=== PATIENT | female | born 1945 | race Caucasian/White ===

== ENCOUNTER 2019-11-19 03:12 | Inpatient (IN) | payer MEDICARE, BC ==
[~2019-11-19] VITALS: Ht 157.5 cm; Wt 79.8 kg
--- NOTE | 2019-11-19 03:19 | NUR ---
Paged Sandra Johnson RN from [facility]. Waiting for call back.
[2019-11-19] MEDS ORDERED: OLANZAPINE 5 MG TABLET ONE (03:22)
[2019-11-19] MEDS ORDERED: OLANZAPINE 5 MG TABLET PO ONE (03:30)
[2019-11-19] MEDS ORDERED: CLONAZEPAM PO (03:38)
[2019-11-19] MEDS ORDERED: TRAMADOL PO (03:38)
--- NOTE | 2019-11-19 03:43 | NUR ---
2ND CALL PLACE FOR CONNER FROM PET TEAM. WAITING FOR CALL BACK.
--- NOTE | 2019-11-19 03:53 | NUR ---
Pt is resting comfortably in bed. Respirations even & unlabored. Pending PET team evaluation. Waiting call back from Sandra. Will continue to monitor.
--- NOTE | 2019-11-19 04:21 | NUR ---
PLACED 3RD CALL TO CONNER FROM PET TEAM FOR EVAL. WAITING FOR CALL BACK.
--- NOTE | 2019-11-19 04:59 | NUR ---
Rylie Alvarado from [facility] called back. Pet Team will eval patient when patient is arousable and able to be interview.
--- NOTE | 2019-11-19 07:00 | NUR ---
one to one sitter at bedside.
--- NOTE | 2019-11-19 07:55 | NUR ---
pt ambulated to bath room with steady gait.
--- NOTE | 2019-11-19 08:01 | NUR ---
called fanny avalos for psych eval.
--- NOTE | 2019-11-19 08:30 | NUR ---
[facility] eduardo provided for pt.
--- NOTE | 2019-11-19 09:40 | NUR ---
pt placed on 5150 hold for gravely disabled by fanny avalos.
--- NOTE | 2019-11-19 10:10 | NUR ---
pt transfered to mhu in stable condition.
[2019-11-19 10:30] VITALS: BP 113/59
[2019-11-19] MEDS ORDERED: MAG HYDROX/AL HYDROX/SIMETH 30 ML LIQUID UDC PO PRN (10:45)
[2019-11-19] MEDS ORDERED: BLOOD SUGAR DIAGNOSTIC 1 EACH STRIP VI ONE (10:45)
--- NOTE | 2019-11-19 13:13 | NUR ---
TEXTED DR. BIRD FOR MRI APPROVAL.
--- NOTE | 2019-11-19 13:44 | NUR ---
PATIENT ON HOLD , SPOKE WITH NURSE HOOKS.
[2019-11-19] MEDS: DIVALPROEX ER 250 MG TAB.SR.24H PO SCH ×2 (13:48→21:00)
[2019-11-19] MEDS: CLONAZEPAM 0.5 MG TABLET PO SCH ×3 (13:49→21:00)
[2019-11-19] MEDS: QUETIAPINE FUMARATE 25 MG TABLET PO SCH ×3 (13:49→21:00)
--- NOTE | 2019-11-19 13:52 | NUR ---
MRI DEFERRED UNTIL FURTHER NOTICE PER PATIENTS NURSE.
[2019-11-19 15:01] VITALS: BP 110/72
--- NOTE | 2019-11-19 18:16 | NUR ---
RECEIVED PATIENT FROM ER AND ADMITTED TO MHU WITH HOLD 72HR 11/22/19 AT 0940. NO SOB AND NO C/O PAIN, BELONGING ACCOUNTED FOR AND SIGNED. NOTIFIED . GAVE ADVISEMENT TO PATIENT , ORIENTED TO THE FACILITY. NO S/S OF COVID. WILL CONTINUE TO MONITOR
[2019-11-19 20:42] VITALS: BP 122/76
--- NOTE | 2019-11-19 22:00 | NUR ---
received to care, lying in bed, asleep, but easy to awaken. remains confused and disoriented. refused all medications. as of 2199, she remains asleep, and calm. no distress noted. will continue to monitor closely.
--- NOTE | 2019-11-20 06:00 | NUR ---
slept 8 hours, total. assisted with shower. currently in her room. no distress noted.
[2019-11-20 07:51] LABS: ALANINE AMINOTRANSFERASE 23 U/L (14-59); ALKALINE PHOSPHATASE 86 U/L (50-136); ASPARTATE AMINOTRANSFERASE 23 U/L (15-37); BILIRUBIN,TOTAL 0.6 mg/dL (0.2-1.0); CARBON DIOXIDE 30 mmol/L (21-32); CHLORIDE 103 mmol/L (98-107); CREATININE 1.1 mg/dL (0.6-1.3); GLUCOSE 103 mg/dL (74-106); TOTAL PROTEIN, SERUM 6.7 g/dL (6.4-8.2); UREA NITROGEN, BLOOD 15 mg/dL (7-18)
[2019-11-20 07:52] LABS: POTASSIUM 2.6 mmol/L (3.5-5.1)
[2019-11-20 07:58] VITALS: BP 128/54
[2019-11-20] MEDS: DULOXETINE 30 MG CAPSULE.DR PO SCH (09:00)
[2019-11-20] MEDS: DIVALPROEX ER 250 MG TAB.SR.24H PO SCH ×2 (09:01→20:28)
[2019-11-20] MEDS: CLONAZEPAM 0.5 MG TABLET PO SCH ×3 (09:01→16:44)
[2019-11-20] MEDS: QUETIAPINE FUMARATE 25 MG TABLET PO SCH ×3 (09:01→20:28)
--- NOTE | 2019-11-20 10:43 | NUR ---
LAURO Initial Discharge Note: Patient currently resides at home [address] [place] [address] with her Karthik Song ([phone]). Patient son-in-law, Duane Olivares ([phone]) is very involved in the patient care. LAURO will continue to work with patient, family, and MD to ensure a safe and proper discharge plan.
[2019-11-20] MEDS ORDERED: POTASSIUM CHLORIDE 10 MEQ TAB.PRT.SR PO ONE ×2 (12:15→17:00)
--- NOTE | 2019-11-20 12:19 | NUR ---
called and spoke with CONTAMINATED LAND CONSULTANT Radhames for the potassium level of 2.6, orders made and carried out , patient asymptomatic in no distress at this time, seen ambulating in the hallway, assisted with ADL, denies any discomfort
--- NOTE | 2019-11-20 12:51 | NUR ---
Social Work Firearms Report ([employer]): Talent Development Analyst completed and submitted a [employer] firearms report for 5150 grave disability certification. A copy of report has been placed in patient chart.
--- NOTE | 2019-11-20 13:15 | NUR ---
Patient potassium 2.6 relayed to ARLIN Negron. ordered Potassium 40meq tablet one time then another Potassium 20meq in the afternoon. Repeat laboratory potassium tomorrow. Patient in stable condition. will continue monitor
[2019-11-20 16:06] VITALS: BP 140/77
[2019-11-20 19:51] VITALS: BP 121/71
[2019-11-20] MEDS: ATORVASTATIN 20 MG TABLET PO SCH (20:28)
--- NOTE | 2019-11-20 22:00 | NUR ---
received to care, confused and isolative, but pleasant upon approach. compliant with medications, and staff direction. as of 2199, she appears to be asleep. no distress noted. will continue to monitor closely.
[2019-11-21 05:59] LABS: POTASSIUM 3.3 mmol/L (3.5-5.1)
--- NOTE | 2019-11-21 06:00 | NUR ---
slept 8 hours, total. currently awake, and in in her room. no distress noted.
[2019-11-21 07:30] VITALS: BP 133/77
[2019-11-21] MEDS ORDERED: BLOOD SUGAR DIAGNOSTIC 1 EACH STRIP VI ONE (09:00)
[2019-11-21] MEDS ORDERED: POTASSIUM CHLORIDE 20 MEQ TAB.PRT.SR PO ONE (09:00)
[2019-11-21] MEDS: CLONAZEPAM 0.5 MG TABLET PO SCH ×3 (09:16→17:19)
[2019-11-21] MEDS: DIVALPROEX ER 250 MG TAB.SR.24H PO SCH ×2 (09:16→20:35)
[2019-11-21] MEDS: DULOXETINE 30 MG CAPSULE.DR PO SCH (09:16)
[2019-11-21] MEDS: QUETIAPINE FUMARATE 25 MG TABLET PO SCH ×3 (09:18→20:35)
[2019-11-21 16:00] VITALS: BP 118/63
[2019-11-21] MEDS: ATORVASTATIN 20 MG TABLET PO SCH (20:35)
[2019-11-21 20:42] VITALS: BP 104/52
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
[2019-11-22] MEDS: HYDROXYZINE PAMOATE 25 MG CAPSULE PO PRN ×3 (00:37→23:26)
[2019-11-22 07:30] VITALS: BP 154/71
[2019-11-22] MEDS: DULOXETINE 30 MG CAPSULE.DR PO SCH (09:30)
[2019-11-22] MEDS: QUETIAPINE FUMARATE 25 MG TABLET PO SCH (09:30)
[2019-11-22] MEDS: CLONAZEPAM 0.5 MG TABLET PO SCH ×3 (09:30→17:43)
[2019-11-22] MEDS: DIVALPROEX ER 250 MG TAB.SR.24H PO SCH ×2 (09:30→20:09)
[2019-11-22] MEDS: DOCUSATE SODIUM 100 MG CAPSULE PO SCH (09:30)
[2019-11-22] MEDS: HYDROCHLOROTHIAZIDE 25 MG TABLET PO SCH (09:31)
[2019-11-22 09:51] VITALS: BP 154/71
[2019-11-22] MEDS: OLANZAPINE ZYDIS 5 MG TAB.RAPDIS PO SCH ×2 (11:22→17:43)
--- NOTE | 2019-11-22 13:16 | NUR ---
Social Work Individual Therapy: grain farmworker met with patient for brief counseling to address patients delusional thought content. Patient presents confused and disoriented. This brief writer assessed to see if patient is experiencing auditory/visual hallucinations. Patient expressed that the people are trying to "kill her". Patient has been uncooperative with this brief writer and is unable to have meaningful conversation. This brief writer assessed for patient's safety and reassured that she is safe. This brief writer encouraged if she feels in danger to contact either this brief writer or the nursing staff. This brief writer comforted patient.
[2019-11-22] MEDS ORDERED: OLANZAPINE 10 MG VIAL IM ONE (13:30)
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
[2019-11-22 15:12] VITALS: BP 111/60
[2019-11-22] MEDS: ATORVASTATIN 20 MG TABLET PO SCH (20:09)
[2019-11-22 20:15] VITALS: BP 118/58
[2019-11-22] MEDS ORDERED: QUETIAPINE FUMARATE 100 MG TABLET PO SCH (21:00)
[2019-11-22] MEDS ORDERED: QUETIAPINE FUMARATE 25 MG TABLET PO SCH (21:00)
[2019-11-22] MEDS: TEMAZEPAM 15 MG CAPSULE PO PRN (21:22)
--- NOTE | 2019-11-22 21:42 | NUR ---
GPS: Pt.is slightly agitated and anxious. Wandering in and out of other pt's rooms looking for her . Re-directed frequently. Confused,disoriented and easily irritable when being re-directed. Poor insight to present situation. Restoril 15 mg PO was just given few minutes ago. Fall precautions observed. Will continue to monitor for further escalation of behavior.
--- NOTE | 2019-11-22 23:28 | NUR ---
GPS: Still anxious,demanding,paranoid and intrusive. Loud at times and continues to look for her . Re-directed and re-assured constantly by staff. Sleeping pill administered earlier was ineffective. Vistaril 25mg PO taken after a lot of persuasion from staff. Will continue to monitor.
[2019-11-23] MEDS: HYDROXYZINE PAMOATE 25 MG CAPSULE PO PRN (06:10)
--- NOTE | 2019-11-23 06:17 | NUR ---
GPS: Pt.did not sleep at all last night. Anxious,restless on and off,confused,disorganized and constantly talking to self. Constant re-direction provided. Gets easily agitated when care was being rendered. Poor insight to present situation. Vistaril 25mg administered and taken after a lot of persuasion from staff. Kept near nurses station for safety. Gait is unsteady at this time. Will continue to monitor.
[2019-11-23 07:30] VITALS: BP 144/74
--- NOTE | 2019-11-23 08:30 | NUR ---
Social Work Discharge Note: [facility] [place] [address]; ([phone]). Patients Bruno ([phone]) will leaf size picker patient at 1PM. Patients Bruno ([phone]) is aware and agreeable with discharge plan. Patient is aware and agreeable with discharge plans. Upon discharge, patient appear to be calm, cooperative and happy to be going home. Patient denies suicidal and homicidal ideation. Patient will follow up with (hydraulic press [place]) [place] [address], [place] [address]; ([phone]) on December 05 at 10:45AM and will follow up with psychiatrist (intake evaluation) at [facility], [address]; ([phone]) on January 16 at 2:20PM and will discuss smoking cessation and address substance abuse dependency. Patient will resume home health services from [facility] ([phone]) on 09/25/19. Patient was provided with mental health resources: [facility] ;([phone]), [facility]; ([phone]), [facility]; ([phone]), National Suicide Prevention Lifeline; ( ). Patient was provided with substance abuse referrals [place] [facility] [place] ) and was also referred to [facility] ([phone]). Patient presents with euthymic mood and congruent affect.
[2019-11-23] MEDS: DIVALPROEX ER 250 MG TAB.SR.24H PO SCH ×2 (09:02→20:12)
[2019-11-23] MEDS: OLANZAPINE ZYDIS 5 MG TAB.RAPDIS PO SCH ×2 (09:02→18:32)
[2019-11-23] MEDS: DOCUSATE SODIUM 100 MG CAPSULE PO SCH (09:02)
[2019-11-23] MEDS: CLONAZEPAM 0.5 MG TABLET PO SCH ×3 (09:02→18:32)
[2019-11-23] MEDS: HYDROCHLOROTHIAZIDE 25 MG TABLET PO SCH (09:06)
--- NOTE | 2019-11-23 11:56 | NUR ---
Social Work Individual Therapy: organic lab worker met with patient for brief counseling to address patients delusional thought content. Patient presents confused and disoriented. This global technical writer assessed to see if patient is experiencing auditory/visual hallucinations. Patient shared that "she is cleaning her room". Patient is unable to have meaningful conversation with this global technical writer.
[2019-11-23 15:56] VITALS: BP 138/72
[2019-11-23 20:00] VITALS: BP 112/69
[2019-11-23] MEDS: QUETIAPINE FUMARATE 100 MG TABLET PO SCH (20:12)
[2019-11-23] MEDS: ATORVASTATIN 20 MG TABLET PO SCH (20:12)
[2019-11-23] MEDS: TEMAZEPAM 15 MG CAPSULE PO PRN (23:04)
[2019-11-24] MEDS: HYDROXYZINE PAMOATE 25 MG CAPSULE PO PRN (04:25)
--- NOTE | 2019-11-24 06:28 | NUR ---
GPS: Pt.slept 5.45 last night. Pt.was less restless and more re-directable. Continues to get easily irritable/agitated when being told what to do. Remains confused,disoriented and non-sensical. Fall precautions observed. Assisted to the bathroom prn due to unsteady gait. Will continue to monitor.
[2019-11-24 07:49] VITALS: BP 103/69
[2019-11-24] MEDS: OLANZAPINE ZYDIS 5 MG TAB.RAPDIS PO SCH ×2 (08:26→17:07)
[2019-11-24] MEDS: DIVALPROEX ER 250 MG TAB.SR.24H PO SCH ×2 (08:26→19:57)
[2019-11-24] MEDS: HYDROCHLOROTHIAZIDE 25 MG TABLET PO SCH (08:26)
[2019-11-24] MEDS: CLONAZEPAM 0.5 MG TABLET PO SCH ×2 (08:26→19:58)
[2019-11-24] MEDS: DOCUSATE SODIUM 100 MG CAPSULE PO SCH (08:26)
[2019-11-24 08:39] LABS: BASOPHILS # (AUTO) 0.1 K/uL (0.0-8.0); BASOPHILS % (AUTO) 0.6 % (0.0-2.0); EOSINOPHILS # (AUTO) 0.1 K/uL (0.0-0.7); EOSINOPHILS % (AUTO) 0.8 % (0.0-7.0); HEMOGLOBIN 12.6 g/dL (10.9-14.3); LYMPHOCYTES # (AUTO) 2.3 K/uL (20.0-40.0); LYMPHOCYTES % (AUTO) 25.9 % (20.5-51.5); MEAN CORPUSCULAR HEMOGLOBIN 28.4 uug (24.7-32.8); MEAN CORPUSCULAR HGB CONC 33 g/dL (32.3-35.6); MEAN CORPUSCULAR VOLUME 85.3 fL (75.5-95.3); MONOCYTES # (AUTO) 0.9 K/uL (2.0-10.0); MONOCYTES % (AUTO) 10.4 % (0.0-11.0); NEUTROPHILS # (AUTO) 5.6 K/uL (1.8-8.9); NEUTROPHILS % (AUTO) 62.3 % (38.5-71.5); PLATELET COUNT (AUTO) 298 K/uL (179-408); RED BLOOD CELL COUNT(AUTO) 4.45 MIL/uL (3.63-4.92)
[2019-11-24 08:50] LABS: CREATININE 1.2 mg/dL (0.6-1.3); POTASSIUM 2.9 mmol/L (3.5-5.1)
--- NOTE | 2019-11-24 11:23 | NUR ---
Received patient this AM, up in trish chair . Awake but confused to time and place. Unsure how she got here. Reoriented patient to the environment. Patient has been calm and less anxious. Medication compliant this am. Assisted patient up to the bathroom and ambulated in the chapa. Gait still unsteady, stand by assist needed. Monitoring for safety and any behavior escalation. Continuing to provide redirection and reorientation when needed. Was able to have some meaningful conversation this morning.
[2019-11-24] MEDS ORDERED: POTASSIUM CHLORIDE 20 MEQ TAB.PRT.SR PO ONE ×2 (14:30→16:15)
[2019-11-24 16:00] VITALS: BP 118/64
[2019-11-24] MEDS: ATORVASTATIN 20 MG TABLET PO SCH (19:57)
[2019-11-24] MEDS: QUETIAPINE FUMARATE 100 MG TABLET PO SCH (19:58)
[2019-11-24 20:32] VITALS: BP 119/69
[2019-11-24] MEDS: TEMAZEPAM 15 MG CAPSULE PO PRN (22:14)
[2019-11-25] MEDS: HYDROXYZINE PAMOATE 25 MG CAPSULE PO PRN ×2 (03:07→13:50)
--- NOTE | 2019-11-25 04:13 | NUR ---
A/O X1-2,ANXIOUS,RESTLESS,EASILY IRRITABLE AND ANGRY WHEN REDIRECTED .PRN MEDS WERE GIVEN THIS SHIFT FOR SLEEP WITH NO EFF,THEN FOR ANXIETY WITH SL.EFF..IN NO ACUTE DISTRESS NOTED.WILL CONTINUE TO MONITOR.
[2019-11-25 07:30] VITALS: BP 137/65
[2019-11-25] MEDS: DIVALPROEX ER 250 MG TAB.SR.24H PO SCH ×2 (07:49→20:17)
[2019-11-25] MEDS: DOCUSATE SODIUM 100 MG CAPSULE PO SCH (07:49)
[2019-11-25] MEDS: CLONAZEPAM 0.5 MG TABLET PO SCH (07:50)
[2019-11-25] MEDS: OLANZAPINE ZYDIS 5 MG TAB.RAPDIS PO SCH ×2 (07:50→17:35)
[2019-11-25 08:03] LABS: BASOPHILS % (AUTO) 0.5 % (0.0-2.0); EOSINOPHILS % (AUTO) 0.3 % (0.0-7.0); HEMATOCRIT 38.3 % (31.2-41.9); HEMOGLOBIN 12.6 g/dL (10.9-14.3); LYMPHOCYTES # (AUTO) 2.3 K/uL (20.0-40.0); LYMPHOCYTES % (AUTO) 22.1 % (20.5-51.5); MEAN CORPUSCULAR HGB CONC 33 g/dL (32.3-35.6); MEAN CORPUSCULAR VOLUME 84.9 fL (75.5-95.3); MONOCYTES % (AUTO) 10.1 % (0.0-11.0); NEUTROPHILS # (AUTO) 6.9 K/uL (1.8-8.9); PLATELET COUNT (AUTO) 300 K/uL (179-408); RED BLOOD CELL COUNT(AUTO) 4.51 MIL/uL (3.63-4.92); WHITE BLOOD COUNT (AUTO) 10.2 K/uL (3.8-11.8)
[2019-11-25 08:09] LABS: BILIRUBIN,TOTAL 0.5 mg/dL (0.2-1.0); CREATININE 1.2 mg/dL (0.6-1.3); MAGNESIUM 2.3 mg/dL (1.8-2.4); PHOSPHOROUS 3.4 mg/dL (2.5-4.9); POTASSIUM 3.1 mmol/L (3.5-5.1); TOTAL PROTEIN, SERUM 7.2 g/dL (6.4-8.2)
--- NOTE | 2019-11-25 08:48 | NUR ---
Received patient this am up in chair. No sleep noted. Very suspicious , anxious and irritable. Confused and is having visual hallucinations. Medication compliant but anxious and angry at times. Continuing to Monitor for safety, And assist patient when ambulating d/t unsteady gait. Some behavior escalation noted. Redirection and reality based conversations attempted. aware of behavior this morning.
[2019-11-25] MEDS ORDERED: CLONAZEPAM 0.5 MG TABLET PO SCH (09:45)
[2019-11-25 16:00] VITALS: BP 103/61
[2019-11-25] MEDS ORDERED: POTASSIUM CHLORIDE 20 MEQ TAB.PRT.SR PO ONE (16:00)
[2019-11-25] MEDS: CLONAZEPAM 1 MG TABLET PO SCH (20:16)
[2019-11-25] MEDS: QUETIAPINE FUMARATE 200 MG TABLET PO SCH (20:17)
[2019-11-25] MEDS: ATORVASTATIN 20 MG TABLET PO SCH (20:17)
[2019-11-25 20:24] VITALS: BP 137/74
[2019-11-25] MEDS ORDERED: QUETIAPINE FUMARATE 100 MG TABLET PO SCH (21:00)
--- NOTE | 2019-11-26 06:49 | NUR ---
GPS: Pt.slept7 hrs.last night. Remains confused,disoriented and non-sensical. Less agitated when being re-directed. Fall precautions observed due to unsteady gait. Will continue to re-direct prn.
[2019-11-26 07:30] VITALS: BP 114/63
[2019-11-26 07:58] LABS: CREATININE 0.8 mg/dL (0.6-1.3)
[2019-11-26] MEDS: POTASSIUM CHLORIDE 20 MEQ TAB.PRT.SR PO SCH (08:11)
[2019-11-26] MEDS: DOCUSATE SODIUM 100 MG CAPSULE PO SCH (08:11)
[2019-11-26] MEDS: OLANZAPINE ZYDIS 5 MG TAB.RAPDIS PO SCH ×2 (08:11→17:00)
[2019-11-26] MEDS: DIVALPROEX ER 250 MG TAB.SR.24H PO SCH ×2 (08:18→20:05)
[2019-11-26] MEDS: ACETAMINOPHEN 325 MG TABLET PO PRN (10:31)
--- NOTE | 2019-11-26 11:35 | NUR ---
GPS: Patient seen and examined by MD Arreaga with decrease dose of Zyprexa 5mg to 2.5mg BID. Patient is unsteady when ambulates. Continue fall risk precaution monitoring. Patient was confused during rounds, seen in the wrong side of the bed and room. But able to remember when she suppose to stay. will continue monitor
[2019-11-26] MEDS: HYDROXYZINE PAMOATE 25 MG CAPSULE PO PRN (13:55)
[2019-11-26 15:00] VITALS: BP 116/69
[2019-11-26] MEDS: CLONAZEPAM 1 MG TABLET PO SCH (20:03)
[2019-11-26] MEDS: ATORVASTATIN 20 MG TABLET PO SCH (20:03)
[2019-11-26] MEDS: QUETIAPINE FUMARATE 200 MG TABLET PO SCH (20:03)
[2019-11-26 20:26] VITALS: BP 123/67
[2019-11-27] MEDS: HYDROXYZINE PAMOATE 25 MG CAPSULE PO PRN ×2 (00:15→01:57)
[2019-11-27 04:32] LABS: *BLOOD, URINE NEGATIVE (NEGATIVE); *COLOR,URINE YELLOW (YELLOW); *KETONES,URINE 1+ (NEGATIVE); *UROBILINOGEN,URINE 0.2 E.U./dl (NORMAL); LEUKOCYTE ESTERASE ,URINE 2+ (NEGATIVE); NITRITE, URINE NEGATIVE (NEGATIVE); UGLUCOSE NEGATIVE (NEGATIVE)
[2019-11-27 04:36] LABS: *BILIRUBIN,URIN 2+ (NEGATIVE); *CLARITY,URINE SLIGHTLY CLOUDY (CLEAR)
[2019-11-27 04:43] LABS: BACTERIA,URINE MANY /HPF (NONE SEEN); SQUAMOUS EPITHELIAL CELL,UR MANY /HPF (NONE SEEN); WBC,URINE 20-50 /HPF (0-3)
[2019-11-27 04:50] LABS: *CREATININE,URINE 146.6 mg/dL (30-125); *URINE TOTAL PROTEIN RANDOM 23.3 mg/dL (<150/24HR)
--- NOTE | 2019-11-27 05:52 | NUR ---
GPS: Pt.was awake the whole night. Restless on and off and was talking to self. Remains confused,disorganized and non-sensical. Potential for falls due to poor safety awareness. Kept near nurses station for safety. Frequent re-direction provided. Easily irritable at times when being re-directed. Showered earlier and was a little uncooperative.Will continue to monitor.
[2019-11-27 07:30] VITALS: BP 123/73
--- NOTE | 2019-11-27 07:40 | NUR ---
Received patient sitting uon an trish-chair. pt. is A/O x 1, in no acute distress. Pt. is able o express slef at times and also noted taking and mumbling to self.
[2019-11-27] MEDS: POTASSIUM CHLORIDE 20 MEQ TAB.PRT.SR PO SCH (08:43)
[2019-11-27] MEDS: DOCUSATE SODIUM 100 MG CAPSULE PO SCH (08:43)
[2019-11-27] MEDS: DIVALPROEX ER 250 MG TAB.SR.24H PO SCH ×2 (08:43→20:56)
[2019-11-27] MEDS: OLANZAPINE ZYDIS 5 MG TAB.RAPDIS PO SCH (08:43)
--- NOTE | 2019-11-27 09:03 | NUR ---
MRI WAS APPROVED, PATIENT IS SCHEDULE FOR 12 O'CLOCK TODAY SPOKE TO NURSE WHITE.
[2019-11-27] MEDS ORDERED: LORAZEPAM 1 MG TABLET PO ONE (10:45)
[2019-11-27] MEDS: CEphaleXIN 500 MG CAPSULE PO SCH ×2 (11:11→20:56)
[2019-11-27] MEDS: risperiDONE 0.5 MG TABLET PO SCH ×2 (11:11→16:08)
--- NOTE | 2019-11-27 11:35 | NUR ---
Patient with an order for MRI as ordered by . Informed family. Patient started on peripheral IV line with a 22guage on Left wrist, intact and patent. All paper works and consents signed by Dr. Olivares. Patient transported via gurney assisted by 2 medics and 1 diploma dental assistant at 11:30AM.
--- NOTE | 2019-11-27 13:13 | NUR ---
Social Work Individual Therapy: particleboard factory worker met with patient for brief counseling to address patients delusional thought content. Patient presents confused, disorganized, and disoriented. Patient believes that she was home last night and is restless. Patient is unable to have meaningful conversation with this feature writer.
[2019-11-27] MEDS ORDERED: GADOTERIDOL 279.3 MG/ML, 15 ML VIAL IV ONE (14:07)
--- NOTE | 2019-11-27 14:23 | NUR ---
Patient came back from at 1PM. No c/o pain or any dizziness during shift. IV line removed from left wrist. All other needs attended, safety measures in place and will continue with care.
--- NOTE | 2019-11-27 15:53 | NUR ---
MRI results received, informed Dr. Luciano will continue with care.
[2019-11-27 16:33] VITALS: BP 124/75
--- NOTE | 2019-11-27 18:54 | NUR ---
Patient sitting by the nurses's station for most of the shift. In no acute distress. NO screaming or agitation noted. Patient still noted talking to self throughout shift. Monitored closely. Assisted with feeding for dinner time and tolerated. All due medications administered and effective. Patient started on on Keflex for UTI and first dose administered during shift and tolerated well. All other needs attended, safety measures in place and will continue with care.
[2019-11-27 20:15] VITALS: BP 123/69
[2019-11-27] MEDS: CLONAZEPAM 1 MG TABLET PO SCH (20:56)
[2019-11-27] MEDS: ATORVASTATIN 20 MG TABLET PO SCH (20:56)
[2019-11-27] MEDS ORDERED: TRAZODONE 100 MG TABLET PO SCH (21:00)
[2019-11-28 07:30] VITALS: BP 123/59
[2019-11-28] MEDS: DOCUSATE SODIUM 100 MG CAPSULE PO SCH (08:54)
[2019-11-28] MEDS: risperiDONE 0.5 MG TABLET PO SCH ×2 (08:54→17:09)
[2019-11-28] MEDS: CEphaleXIN 500 MG CAPSULE PO SCH ×2 (08:54→20:41)
[2019-11-28] MEDS: DIVALPROEX ER 250 MG TAB.SR.24H PO SCH ×2 (08:54→20:41)
[2019-11-28] MEDS: POTASSIUM CHLORIDE 20 MEQ TAB.PRT.SR PO SCH (08:54)
[2019-11-28] MEDS: MAGNESIUM HYDROXIDE 30 ML LIQUID UDC PO PRN (18:57)
[2019-11-28 20:23] VITALS: BP 130/56
[2019-11-28] MEDS: CLONAZEPAM 1 MG TABLET PO SCH (20:40)
[2019-11-28] MEDS: TRAZODONE 100 MG TABLET PO SCH (20:41)
[2019-11-28] MEDS: ATORVASTATIN 20 MG TABLET PO SCH (20:41)
--- NOTE | 2019-11-28 22:00 | NUR ---
received to care, lying in bed, pleasant upon approach. compliant with medications, and staff direction. as of 0, she appears to be asleep. no distress noted. will continue to monitor closely.
--- NOTE | 2019-11-29 06:00 | NUR ---
slept 6.5 hours, total. continues to sleep. no distress noted.
[2019-11-29 07:30] VITALS: BP 107/62
[2019-11-29] MEDS: risperiDONE 0.5 MG TABLET PO SCH (08:25)
[2019-11-29] MEDS: DIVALPROEX ER 250 MG TAB.SR.24H PO SCH ×2 (08:25→20:02)
[2019-11-29] MEDS: DOCUSATE SODIUM 100 MG CAPSULE PO SCH (08:25)
[2019-11-29] MEDS: CEphaleXIN 500 MG CAPSULE PO SCH (08:25)
[2019-11-29] MEDS: Z GUARD REMEDY PASTE 57 GM TUBE TOP PRN ×2 (10:55→22:00)
--- NOTE | 2019-11-29 13:56 | NUR ---
Received patient this am. Awake, but confused. Oriented to environment and situation. Provided a shower. VS are stable and no acute behavior issues noted. Monitoring for safety and continuing to redirect, educate and orient patient as needed.
[2019-11-29] MEDS: MAGNESIUM HYDROXIDE 30 ML LIQUID UDC PO PRN (14:46)
[2019-11-29 16:00] VITALS: BP 115/46
[2019-11-29] MEDS: risperiDONE 1 MG TABLET PO SCH (16:34)
[2019-11-29] MEDS ORDERED: risperiDONE 0.5 MG TABLET PO SCH (17:00)
[2019-11-29] MEDS: CLONAZEPAM 1 MG TABLET PO SCH (20:02)
[2019-11-29] MEDS: NITROFURANTOIN/NITROFURAN MAC 100 MG CAPSULE PO SCH (20:02)
[2019-11-29] MEDS: ATORVASTATIN 20 MG TABLET PO SCH (20:02)
[2019-11-29] MEDS: TRAZODONE 100 MG TABLET PO SCH (20:02)
[2019-11-29 20:09] VITALS: BP 116/52
--- NOTE | 2019-11-29 22:00 | NUR ---
received to care, sitting in her room, pleasant upon approach. compliant with medications, but remains anxious. is focused on being discharged home. interacts well with room mate. as of 2199, she remains awake. no distress noted.
[2019-11-29] MEDS: HYDROXYZINE PAMOATE 25 MG CAPSULE PO PRN (23:29)
--- NOTE | 2019-11-29 23:29 | NUR ---
remains awake, and anxious, sitting on her bed, in the dark, requesting medication to help her calm down; PRN vistaril was given for anxiety. will continue to monitor closely.
--- NOTE | 2019-11-30 01:00 | NUR ---
appears to be asleep. no distress noted.
--- NOTE | 2019-11-30 06:00 | NUR ---
slept 5.5 hours, total. continues to sleep. no distress noted.
[2019-11-30 07:30] VITALS: BP 129/71
[2019-11-30] MEDS: DIVALPROEX ER 250 MG TAB.SR.24H PO SCH ×2 (08:27→20:22)
[2019-11-30] MEDS: risperiDONE 1 MG TABLET PO SCH ×2 (08:27→16:38)
[2019-11-30] MEDS: NITROFURANTOIN/NITROFURAN MAC 100 MG CAPSULE PO SCH ×2 (08:27→20:22)
[2019-11-30] MEDS: DOCUSATE SODIUM 100 MG CAPSULE PO SCH (08:27)
--- NOTE | 2019-11-30 13:42 | NUR ---
Received patient this am standing at the nurses station without pants on. Assisted patient back to room and reoriented patient to the environment and situation. Patient is confused but can be redirected easily. Am care given, VS are stable, denies pain. Medication compliant. Monitoring for anxiety, pain, s/s of UTI and safety. No acute distress.
--- NOTE | 2019-11-30 15:04 | NUR ---
Social Work Individual Therapy: renal social worker met with patient for brief individual counseling to address patients delusional thought process. Patient presents with calm mood and is able to engage in a more meaningful conversation. Patient shared that she wants to go home and is more aware of her surrounding. Patient speech is low and is able to maintain good eye contact. SW provided supportive counseling and redirection.
[2019-11-30 15:08] VITALS: BP 109/60
[2019-11-30] MEDS: PHENAZOPYRIDINE HCL 100 MG TABLET PO PRN (16:47)
[2019-11-30 20:03] VITALS: BP 132/68
[2019-11-30] MEDS: CLONAZEPAM 1 MG TABLET PO SCH (20:22)
[2019-11-30] MEDS: ATORVASTATIN 20 MG TABLET PO SCH (20:22)
[2019-11-30] MEDS ORDERED: TRAZODONE 100 MG TABLET PO SCH (21:00)
--- NOTE | 2019-11-30 22:00 | NUR ---
received to care, sitting in her room, pleasant upon approach. compliant with medications, but remains anxious. is focused on being discharged home. as of 2199, she remains awake. no distress noted.
[2019-11-30] MEDS: ACETAMINOPHEN 325 MG TABLET PO PRN (23:08)
[2019-11-30] MEDS: HYDROXYZINE PAMOATE 25 MG CAPSULE PO PRN (23:08)
--- NOTE | 2019-11-30 23:08 | NUR ---
pt is now wandering the hallway, carrying her belongings, stating that her is coming to pick her up. reality orientation was provided. PRN vistaril was given for anxiety. currently lying in bed.
--- NOTE | 2019-11-30 23:45 | NUR ---
appears to be asleep. no distress noted.
--- NOTE | 2019-12-01 06:00 | NUR ---
slept 4.5 hours, total. continues to sleep. no distress noted.
[2019-12-01 07:24] LABS: BASOPHILS % (AUTO) 0.6 % (0.0-2.0); EOSINOPHILS # (AUTO) 0.1 K/uL (0.0-0.7); EOSINOPHILS % (AUTO) 0.8 % (0.0-7.0); HEMATOCRIT 34.4 % (31.2-41.9); HEMOGLOBIN 11.5 g/dL (10.9-14.3); LYMPHOCYTES % (AUTO) 26.9 % (20.5-51.5); MEAN CORPUSCULAR HEMOGLOBIN 28.4 uug (24.7-32.8); MEAN CORPUSCULAR HGB CONC 33 g/dL (32.3-35.6); MONOCYTES # (AUTO) 0.9 K/uL (2.0-10.0); MONOCYTES % (AUTO) 11.7 % (0.0-11.0); NEUTROPHILS # (AUTO) 4.4 K/uL (1.8-8.9); PLATELET COUNT (AUTO) 246 K/uL (179-408); RED BLOOD CELL COUNT(AUTO) 4.05 MIL/uL (3.63-4.92); WHITE BLOOD COUNT (AUTO) 7.4 K/uL (3.8-11.8)
[2019-12-01 07:30] VITALS: BP 133/76
[2019-12-01 08:05] LABS: CREATININE 0.8 mg/dL (0.6-1.3); MAGNESIUM 2.5 mg/dL (1.8-2.4); PHOSPHOROUS 4.1 mg/dL (2.5-4.9); POTASSIUM 3.3 mmol/L (3.5-5.1)
[2019-12-01] MEDS: DIVALPROEX ER 250 MG TAB.SR.24H PO SCH ×2 (08:37→11:09)
[2019-12-01] MEDS: DOCUSATE SODIUM 100 MG CAPSULE PO SCH (08:37)
[2019-12-01] MEDS: risperiDONE 1 MG TABLET PO SCH (08:37)
[2019-12-01] MEDS: NITROFURANTOIN/NITROFURAN MAC 100 MG CAPSULE PO SCH ×2 (08:37→20:45)
[2019-12-01] MEDS ORDERED: POTASSIUM CHLORIDE 20 MEQ TAB.PRT.SR PO ONE (12:45)
[2019-12-01 15:42] VITALS: BP 117/77
[2019-12-01] MEDS: risperiDONE 0.5 MG TABLET PO SCH (16:20)
[2019-12-01] MEDS ORDERED: risperiDONE 1 MG TABLET PO SCH (17:00)
[2019-12-01 17:49] LABS: *BILIRUBIN,URIN 2+ (NEGATIVE); *BLOOD, URINE NEGATIVE (NEGATIVE); *COLOR,URINE Brown (YELLOW); *KETONES,URINE 2+ (NEGATIVE); NITRITE, URINE POSITIVE (NEGATIVE); UGLUCOSE TRACE (NEGATIVE)
[2019-12-01 18:16] LABS: *CLARITY,URINE CLOUDY (CLEAR)
[2019-12-01 18:17] LABS: LEUKOCYTE ESTERASE ,URINE TRACE (NEGATIVE)
[2019-12-01 18:19] LABS: BACTERIA,URINE MODERATE /HPF (NONE SEEN); MUCUS,URINE MANY /LPF (0-FEW); SQUAMOUS EPITHELIAL CELL,UR MANY /HPF (NONE SEEN)
--- NOTE | 2019-12-01 18:20 | NUR ---
Patient is AAO x1 , very confused, needs to be reoriented at all times. Patient is in NO acute distress. Vital signs stable, denies any pain. Patient is able to express self and noted talking to self. Due medications administered and tolerate well. Patient on ATB therapy of Macrobid for UTI with no adverse reaction noted. Encouraged to increase fluid intake during shift. Skin kept clean and dry. Needs attended, safety measures in place, monitored closely and will continue with care.
[2019-12-01 20:26] VITALS: BP 106/63
[2019-12-01] MEDS: ATORVASTATIN 20 MG TABLET PO SCH (20:45)
[2019-12-01] MEDS: CLONAZEPAM 1 MG TABLET PO SCH (20:45)
[2019-12-01] MEDS: DIVALPROEX ER 500 MG TAB.SR.24H PO SCH (20:45)
[2019-12-01] MEDS ORDERED: MIRTAZAPINE 15 MG TABLET PO SCH (21:00)
--- NOTE | 2019-12-02 06:11 | NUR ---
Received Pt in hallway sitting in the trish chair. A+Ox1 to herself only, Pt is confused, disoriented, and disorganized. Pt is delusional and hyperverbal, speaks to herself and unseen others, requires frequent reality reorientation and redirection. Pt is restless and anxious and presents with poor sleep. Denies pain, VS stable. Slept 1.45 hours. Shower given this morning.
[2019-12-02 07:30] VITALS: BP 129/72
[2019-12-02] MEDS: risperiDONE 0.5 MG TABLET PO SCH ×2 (08:09→17:05)
[2019-12-02] MEDS: NITROFURANTOIN/NITROFURAN MAC 100 MG CAPSULE PO SCH ×2 (08:09→20:29)
[2019-12-02] MEDS: DOCUSATE SODIUM 100 MG CAPSULE PO SCH (08:09)
[2019-12-02] MEDS: DIVALPROEX ER 250 MG TAB.SR.24H PO SCH (08:09)
[2019-12-02] MEDS: Z GUARD REMEDY PASTE 57 GM TUBE TOP PRN (08:58)
--- NOTE | 2019-12-02 10:15 | NUR ---
Received patient this am in Maria L chair. Restless and totally confused. Unable to hold any meaningful conversation. Attempts made to reorient patient to situation multiple times. Assist given with breakfast. Patient is medication compliant. Ambulates in chapa, gait steady but wonders into other patients room and is lost. Redirection given and frequent rounding done to ensure patients safety. Visual hallucinations noted. Monitoring anxiety and behavior. No acute distress at this time.
[2019-12-02] MEDS: HYDROXYZINE PAMOATE 25 MG CAPSULE PO PRN (15:31)
[2019-12-02 16:10] VITALS: BP 121/71
[2019-12-02] MEDS: DIVALPROEX ER 500 MG TAB.SR.24H PO SCH (20:22)
[2019-12-02] MEDS: CLONAZEPAM 1 MG TABLET PO SCH (20:22)
[2019-12-02] MEDS: MIRTAZAPINE 15 MG TABLET PO SCH (20:28)
[2019-12-02] MEDS: ATORVASTATIN 20 MG TABLET PO SCH (20:29)
--- NOTE | 2019-12-02 23:08 | NUR ---
GPS/ RECEIVED PT UP IN EMIR-CHAIR. ALERT BUT VERY CONFUSE, RESTLESS, AND UNABLE TO COMPREHEND ANYTHING MENTALLY. PT CONSTANTLY TRYING TO GET OUT OF CHAIR OR BUSY AND ENGAGING IN REMOVING HER CLOTHS UNKNOWINGLY. PT UNABLE TO REDIRECT OR REINFORCE REALITY DUE TO OVER STIMULATION. PT ROUTINE MEDICATIONS DIVALPROEX ER 500MG, KLONOPIN 1MG, REMORON 30MG INCREASED FROM 15MG AND MICROBID WAS GIVEN FOR UTI, COOPERATIVE AND OFFER WATER CHARLY. PT WAS TRANSFER TO ROOM AND BRP GIVEN WITH NOTED URINE COLOR YELLOWISH. MEDS EFFECTIVE AND PT IS NOW RESTING ING BED. Q/15 MINS HEAD COUNT WILL CONTINUE.
--- NOTE | 2019-12-03 06:16 | NUR ---
PT WAS MONITORED DURING SHIFT, NO NEW BEHAVIOR AND PT SLEPT UP TO 7.30MINS. AWAKE TO USE BRP. RESPONDING AND BREATHING EVEN.
[2019-12-03 07:30] VITALS: BP 139/52
[2019-12-03] MEDS: NITROFURANTOIN/NITROFURAN MAC 100 MG CAPSULE PO SCH ×2 (08:52→21:20)
[2019-12-03] MEDS: DIVALPROEX ER 250 MG TAB.SR.24H PO SCH (08:52)
[2019-12-03] MEDS: DOCUSATE SODIUM 100 MG CAPSULE PO SCH (08:52)
[2019-12-03] MEDS: risperiDONE 0.5 MG TABLET PO SCH ×3 (10:23→16:45)
[2019-12-03 15:05] VITALS: BP 110/52
[2019-12-03 20:22] VITALS: BP 136/50
[2019-12-03] MEDS: CLONAZEPAM 1 MG TABLET PO SCH (21:20)
[2019-12-03] MEDS: MIRTAZAPINE 15 MG TABLET PO SCH (21:20)
[2019-12-03] MEDS: DIVALPROEX ER 500 MG TAB.SR.24H PO SCH (21:20)
[2019-12-03] MEDS: ATORVASTATIN 20 MG TABLET PO SCH (21:20)
[2019-12-04] MEDS: HYDROXYZINE PAMOATE 25 MG CAPSULE PO PRN (00:05)
[2019-12-04] MEDS: PHENAZOPYRIDINE HCL 100 MG TABLET PO PRN ×2 (00:05→16:19)
--- NOTE | 2019-12-04 00:15 | NUR ---
Received Pt in her room sleeping, arouses easily. A+Ox2 this shift, more alert than prior shifts.Pt is less confused and more organized in thought process. Pt is currently resting in bed, fluids provided, Pt declined HS snack. Compliant with medications, cooperative with staff direction. Denies pain, VS stable.
[2019-12-04 07:30] VITALS: BP 107/56
[2019-12-04] MEDS: risperiDONE 0.5 MG TABLET PO SCH ×3 (08:49→16:19)
[2019-12-04] MEDS: NITROFURANTOIN/NITROFURAN MAC 100 MG CAPSULE PO SCH ×2 (08:49→20:31)
[2019-12-04] MEDS: DOCUSATE SODIUM 100 MG CAPSULE PO SCH (08:49)
[2019-12-04] MEDS: DIVALPROEX ER 250 MG TAB.SR.24H PO SCH (08:49)
--- NOTE | 2019-12-04 09:38 | NUR ---
Received patient this am. Awake, totally confused. Constant redirection and reorientation needed. Patient ambulates in hallway, wonders in and out of other patients room. VS are stable and no c/o pain. Some anxiety noted. Monitoring for safety and anxiety. No acute distress noted at this time.
[2019-12-04 16:00] VITALS: BP 95/56
[2019-12-04] MEDS: ACETAMINOPHEN 325 MG TABLET PO PRN (16:20)
--- NOTE | 2019-12-04 16:20 | NUR ---
Patient with slight elevated temp. Tylenol given. Encourage fluids. Continuing to monitor.
[2019-12-04 20:10] VITALS: BP 142/73
[2019-12-04] MEDS: DIVALPROEX ER 500 MG TAB.SR.24H PO SCH (20:29)
[2019-12-04] MEDS: CLONAZEPAM 1 MG TABLET PO SCH (20:31)
[2019-12-04] MEDS: ATORVASTATIN 20 MG TABLET PO SCH (20:31)
[2019-12-04] MEDS: AMITRIPTYLINE HCL 50 MG TABLET PO SCH (20:53)
--- NOTE | 2019-12-04 21:42 | NUR ---
GPS/PT UP IN BED. ALERT BUT CONFUSE, AND ABLE TO RESPOND BACK WITH QUESTIONED. PT ROUTINE MEDICATIONS DIVALPROEX ER 500MG, KLONOPIN 1MG, REMORON 30MG, AND NEW ORDER AMITRIPTYLINE 100MG, AND MICROBID WAS GIVEN FOR UTI. PT COOPERATIVE WITH MEDS, AND OFFER WATER CHARLY. MEDS EFFECTIVE AND PT IS NOW RESTING ING BED. Q/15 MINS HEAD COUNT WILL CONTINUE, ALSO MONITORING INCREASE BEHAVIOR PER NEW POSITIVE ENTEROCOCCUS FAECALIS. GOOD PERICARE WILL BE PROVIDED.
--- NOTE | 2019-12-05 06:41 | NUR ---
PT SLEPT 5.45MINS DURING SHIFT, PT WAS UP AND FREQUENTLY USING BR. OFFER WATER AND ENCOURAGE TO DRINK TOLERATED.
[2019-12-05 07:30] VITALS: BP 130/83
[2019-12-05] MEDS: DIVALPROEX ER 250 MG TAB.SR.24H PO SCH (08:33)
[2019-12-05] MEDS: risperiDONE 0.5 MG TABLET PO SCH ×3 (08:33→17:08)
[2019-12-05] MEDS: ACETAMINOPHEN 325 MG TABLET PO PRN (08:33)
[2019-12-05] MEDS: PHENAZOPYRIDINE HCL 100 MG TABLET PO PRN (08:33)
[2019-12-05] MEDS: DOCUSATE SODIUM 100 MG CAPSULE PO SCH (08:34)
[2019-12-05] MEDS: Z GUARD REMEDY PASTE 57 GM TUBE TOP PRN (09:31)
--- NOTE | 2019-12-05 10:02 | NUR ---
Received patient in chair, Awake, alert but very confused. VS stable. Assist to bathroom multiple times. Zguard applied. Spoke with edging catcher about s/s of UTI. Plan to obtain another urine sample and possibly restart antibiotics. Patient is medication compliant. Medicated for discomfort, also constant reorientation and redirection provided. Continuing to monitor for safety. Fluids provided and encouraged.
[2019-12-05] MEDS: HYDROXYZINE PAMOATE 25 MG CAPSULE PO PRN ×2 (12:27→19:56)
[2019-12-05 16:04] VITALS: BP 108/63
--- NOTE | 2019-12-05 17:48 | NUR ---
Assisted to the bathroom, UA obtained and sent to the lab. Patient is restless and has a poor appetite. Encouraged fluids and patient tolerated them well, refused food however. Continuing to provide food selections and options. Monitoring for safety, gait unsteady tonight.
[2019-12-05 18:06] LABS: *BILIRUBIN,URIN 2+ (NEGATIVE); *BLOOD, URINE NEGATIVE (NEGATIVE); *CLARITY,URINE SLIGHTLY CLOUDY (CLEAR); *KETONES,URINE 3+ (NEGATIVE); LEUKOCYTE ESTERASE ,URINE 3+ (NEGATIVE); NITRITE, URINE POSITIVE (NEGATIVE); UGLUCOSE TRACE (NEGATIVE)
[2019-12-05 18:20] LABS: *COLOR,URINE BROWN (YELLOW)
[2019-12-05 18:22] LABS: BACTERIA,URINE MANY /HPF (NONE SEEN); MUCUS,URINE MANY /LPF (0-FEW); SQUAMOUS EPITHELIAL CELL,UR MODERATE /HPF (NONE SEEN); WBC,URINE 20-50 /HPF (0-3)
[2019-12-05 20:19] VITALS: BP 128/66
[2019-12-05] MEDS: ATORVASTATIN 20 MG TABLET PO SCH (21:02)
[2019-12-05] MEDS: DIVALPROEX ER 500 MG TAB.SR.24H PO SCH (21:02)
[2019-12-05] MEDS: CLONAZEPAM 1 MG TABLET PO SCH (21:02)
[2019-12-05] MEDS: AMITRIPTYLINE HCL 50 MG TABLET PO SCH (21:02)
--- NOTE | 2019-12-05 22:00 | NUR ---
received to care, up in trish chair for safety, anxious, but pleasant upon approach. COBY rubiotaril, was given for anxiety, at 1955. by 2099, she was much calmer. compliant with medications, and staff direction. as of 2199, she appears to be asleep, in bed. no distress noted. will continue to monitor closely.
--- NOTE | 2019-12-06 06:00 | NUR ---
slept 8.25 hours, total. continues to sleep. no distress noted.
[2019-12-06 07:08] LABS: BASOPHILS % (AUTO) 0.4 % (0.0-2.0); EOSINOPHILS # (AUTO) 0.1 K/uL (0.0-0.7); EOSINOPHILS % (AUTO) 1.2 % (0.0-7.0); LYMPHOCYTES % (AUTO) 21.1 % (20.5-51.5); MEAN CORPUSCULAR HEMOGLOBIN 28.8 uug (24.7-32.8); MEAN CORPUSCULAR HGB CONC 34 g/dL (32.3-35.6); MONOCYTES # (AUTO) 1.2 K/uL (2.0-10.0); MONOCYTES % (AUTO) 12.6 % (0.0-11.0); NEUTROPHILS # (AUTO) 6.3 K/uL (1.8-8.9); NEUTROPHILS % (AUTO) 64.7 % (38.5-71.5); PLATELET COUNT (AUTO) 215 K/uL (179-408); RED BLOOD CELL COUNT(AUTO) 3.81 MIL/uL (3.63-4.92); WHITE BLOOD COUNT (AUTO) 9.7 K/uL (3.8-11.8)
[2019-12-06 07:32] LABS: BILIRUBIN,TOTAL 0.6 mg/dL (0.2-1.0); CREATININE 0.8 mg/dL (0.6-1.3); MAGNESIUM 2.3 mg/dL (1.8-2.4); PHOSPHOROUS 3.9 mg/dL (2.5-4.9); POTASSIUM 2.9 mmol/L (3.5-5.1); TOTAL PROTEIN, SERUM 5.6 g/dL (6.4-8.2)
[2019-12-06 07:46] VITALS: BP 124/60
[2019-12-06] MEDS ORDERED: POTASSIUM CHLORIDE 20 MEQ TAB.PRT.SR PO ONE ×2 (08:00→10:00)
[2019-12-06] MEDS: risperiDONE 0.5 MG TABLET PO SCH ×3 (09:12→17:35)
[2019-12-06] MEDS: DIVALPROEX ER 250 MG TAB.SR.24H PO SCH (09:12)
[2019-12-06] MEDS: NITROFURANTOIN/NITROFURAN MAC 100 MG CAPSULE PO SCH ×2 (09:12→20:06)
[2019-12-06] MEDS: DOCUSATE SODIUM 100 MG CAPSULE PO SCH (09:12)
--- NOTE | 2019-12-06 15:15 | NUR ---
Social Work Individual Therapy: tar worker met with patient for brief individual counseling to address patients delusional thought process. Patient presents with frustrated mood and congruent affect. Patient shared that she is in "a lot of pain" but was unable to explain why. Patient speech is low. Gauger Delivery encouraged patient to join group activities but patient refused. Patient is aware that she is going home tomorrow and is looking forward to it. Gauger Delivery supported patient and ensured that she will be going home with support.
[2019-12-06 16:00] VITALS: BP 138/72
[2019-12-06 20:00] VITALS: BP 121/80
[2019-12-06] MEDS: CLONAZEPAM 1 MG TABLET PO SCH (20:06)
[2019-12-06] MEDS: ATORVASTATIN 20 MG TABLET PO SCH (20:06)
[2019-12-06] MEDS: AMITRIPTYLINE HCL 50 MG TABLET PO SCH (20:06)
[2019-12-06] MEDS: DIVALPROEX ER 500 MG TAB.SR.24H PO SCH (20:06)
[2019-12-06] MEDS: HYDROXYZINE PAMOATE 25 MG CAPSULE PO PRN (21:18)
--- NOTE | 2019-12-06 23:00 | NUR ---
received to care, up in trish chair for safety, anxious, but pleasant upon approach. compliant with medications, and staff direction. PRN vistaril was given for anxiety, at 2117. as of 2299, she remains restless, focused on going home, refuses to go to bed. no distress noted. will continue to monitor closely.
--- NOTE | 2019-12-07 06:00 | NUR ---
slept 6.75 hours, total. continues to sleep. no distress noted.
[2019-12-07 07:16] LABS: BASOPHILS % (AUTO) 0.3 % (0.0-2.0); EOSINOPHILS # (AUTO) 0.1 K/uL (0.0-0.7); EOSINOPHILS % (AUTO) 0.5 % (0.0-7.0); HEMATOCRIT 32.6 % (31.2-41.9); LYMPHOCYTES # (AUTO) 2.2 K/uL (20.0-40.0); LYMPHOCYTES % (AUTO) 23.6 % (20.5-51.5); MEAN CORPUSCULAR HEMOGLOBIN 28.3 uug (24.7-32.8); MEAN CORPUSCULAR HGB CONC 34 g/dL (32.3-35.6); MEAN CORPUSCULAR VOLUME 84.1 fL (75.5-95.3); MONOCYTES # (AUTO) 1.1 K/uL (2.0-10.0); MONOCYTES % (AUTO) 11.9 % (0.0-11.0); NEUTROPHILS % (AUTO) 63.7 % (38.5-71.5); PLATELET COUNT (AUTO) 229 K/uL (179-408); RED BLOOD CELL COUNT(AUTO) 3.88 MIL/uL (3.63-4.92); WHITE BLOOD COUNT (AUTO) 9.5 K/uL (3.8-11.8)
[2019-12-07 07:21] LABS: CREATININE 0.9 mg/dL (0.6-1.3); MAGNESIUM 2.3 mg/dL (1.8-2.4); PHOSPHOROUS 3.4 mg/dL (2.5-4.9); POTASSIUM 3.7 mmol/L (3.5-5.1)
[2019-12-07 07:30] VITALS: BP 122/77
[2019-12-07] MEDS: HYDROXYZINE PAMOATE 25 MG CAPSULE PO PRN (07:41)
[2019-12-07] MEDS: DOCUSATE SODIUM 100 MG CAPSULE PO SCH (08:29)
[2019-12-07] MEDS: NITROFURANTOIN/NITROFURAN MAC 100 MG CAPSULE PO SCH (08:29)
[2019-12-07] MEDS: DIVALPROEX ER 250 MG TAB.SR.24H PO SCH (08:29)
[2019-12-07] MEDS: risperiDONE 0.5 MG TABLET PO SCH (08:29)
--- NOTE | 2019-12-07 08:30 | NUR ---
SW Discharge Note: Patient will be discharged today back home [id number] [place] [address] ([phone]). Patient will be provided transportation by her son-in-law Duane Olivares ([phone]) at 1pm. Patients Mey woods ([phone]) is aware and agreeable with discharge plans. Patient is aware and agreeable with discharge plans. Patient presents with withdrawn mood and flat affect. Patient denies suicidal or homicidal ideation. Patient will be following up with her psychiatrist Dr. Arreaga [address], [place] [address] ([phone]) and has a telephone appointment scheduled on Tuesday December 10, 2019 at 1:30pm. [facility] [address] [place] [address], [address] [place] [address] ([phone]) and patients daughterMey will be calling to make an appointment per family request. Patient is referred for home health services by [facility]. ( ) Shannon wage and salary administrator (cell: [phone]) for medication management, physical therapy, shower assistance, and completing ADLs. Patient and family are provided with caregiving resources including the following: [facility] ([phone]), [facility] ([phone]), [facility] ([phone]). Patient was also provided with outpatient mental health resources to [facility] , and the National Suicide Prevention Lifeline .
--- NOTE | 2019-12-07 09:57 | NUR ---
Patient will be discharge to home around 1pm via private car with son in law. Patient will be following up with her psychiatrist Dr. Arreaga [address] [place], [place] [address] [address], [place] [address] ([phone]) and has a telephone appointment scheduled on Tuesday December 10, 2019 at 1:30pm. Patient is referred to [facility] Dr. Harrison [address] [place] [address], [address] [place] [address] ([phone]) . MD Arreaga (psych) and ARLIN Del Cid (Hospitalist aware).
--- NOTE | 2019-12-07 12:12 | NUR ---
Patient discharge to home via private car around 12pm with son in law. Denies suicidal/homicide ideation, denies visual hallucination. Prescription and TMS was given to son in law, verbalize that he communicate with [employer] Nehemias. Belongings and discharge instructions was given to son in law. MD Arreaga and MD Del Cid aware of the discharge.
== END 2019-12-07 12:00 | disposition home health service (06) | DRG 885 ==
LOC: ER 03:14 → GPS 10:11
PROVIDERS: ADMIT Psychiatry & Neurology Psychiatry; ATTEND Internal Medicine
DX: F31.64 Bipolar disorder, current episode mixed, severe, with psychotic features (principal); N17.0 Acute kidney failure with tubular necrosis; B95.2 Enterococcus as the cause of diseases classified elsewhere; E44.0 Moderate protein-calorie malnutrition; N39.0 Urinary tract infection, site not specified; G93.40 Encephalopathy, unspecified; M19.90 Unspecified osteoarthritis, unspecified site; E78.5 Hyperlipidemia, unspecified; E86.1 Hypovolemia; E87.6 Hypokalemia; I10 Essential (primary) hypertension; F29 Unspecified psychosis not due to a substance or known physiological condition; K59.00 Constipation, unspecified; E66.01 Morbid (severe) obesity due to excess calories; R60.0 Localized edema; Z68.32 Body mass index [BMI] 32.0-32.9, adult; D44.4 Neoplasm of uncertain behavior of craniopharyngeal duct; Z79.899 Other long term (current) drug therapy; T50.2X5A Adverse effect of carbonic-anhydrase inhibitors, benzothiadiazides and other diuretics, initial encounter; Y92.89 Other specified places as the place of occurrence of the external cause
CPT/HCPCS: 36415; 70553; 80164; 83735; 84100; 84133; 84156; 84300; 85025; 87077; 87086; 93005; A4663; A9579; J2358

== ENCOUNTER 2020-05-30 16:03 | Inpatient (IN) | payer MEDICARE, BC ==
[~2020-05-30] VITALS: Ht 162.6 cm; Wt 68.5 kg
[~2020-05-30 16:03] MED LIST: TRAMADOL PO
--- NOTE | 2020-05-30 16:03 | NUR ---
Dr. Olivares at bedside for MSE
--- NOTE | 2020-05-30 16:03 | NUR ---
Patient BIB [id number] via [email or web address]. c/o syncopal episode at home. no visible injuries noted. patient A&O x1. speech is clear and able to make needs known / follow commands. Breathing even and unlabored. no cough or SOB noted. denies any CP / dizziness / [place]
[2020-05-30 16:24] LABS: BASOPHILS % (AUTO) 0.5 % (0.0-2.0); EOSINOPHILS % (AUTO) 0.3 % (0.0-7.0); HEMATOCRIT 32.9 % (31.2-41.9); HEMOGLOBIN 11.3 g/dL (10.9-14.3); LYMPHOCYTES # (AUTO) 2.1 K/uL (20.0-40.0); LYMPHOCYTES % (AUTO) 29.2 % (20.5-51.5); MEAN CORPUSCULAR HEMOGLOBIN 29.1 uug (24.7-32.8); MEAN CORPUSCULAR HGB CONC 34 g/dL (32.3-35.6); MEAN CORPUSCULAR VOLUME 84.6 fL (75.5-95.3); MONOCYTES # (AUTO) 0.9 K/uL (2.0-10.0); MONOCYTES % (AUTO) 12.9 % (0.0-11.0); NEUTROPHILS # (AUTO) 4.2 K/uL (1.8-8.9); NEUTROPHILS % (AUTO) 57.1 % (38.5-71.5); PLATELET COUNT (AUTO) 194 K/uL (179-408); RED BLOOD CELL COUNT(AUTO) 3.88 MIL/uL (3.63-4.92); WHITE BLOOD COUNT (AUTO) 7.3 K/uL (3.8-11.8)
[2020-05-30 16:31] LABS: CREATININE 1.2 mg/dL (0.6-1.3); POTASSIUM 3.2 mmol/L (3.5-5.1)
[2020-05-30 16:37] LABS: BILIRUBIN,DIRECT 0.1 mg/dL (0.0-0.2); BILIRUBIN,TOTAL 0.3 mg/dL (0.2-1.0); TOTAL PROTEIN, SERUM 6.4 g/dL (6.4-8.2)
--- NOTE | 2020-05-30 17:20 | NUR ---
Pt. admitted to Telemetry , under care of Dr. Olivares Belongs List completed
--- NOTE | 2020-05-30 17:20 | NUR ---
Shruthi begum in ED - 05/30/[address] at [address] Olivares at [facility] for MSE
[2020-05-30] MEDS ORDERED: ACETAMINOPHEN 325 MG TABLET PO PRN (17:30)
[2020-05-30] MEDS ORDERED: MAGNESIUM HYDROXIDE 30 ML LIQUID UDC PO PRN (17:30)
[2020-05-30] MEDS ORDERED: ONDANSETRON 4 MG/2 ML VIAL IV PRN (17:30)
[2020-05-30] MEDS ORDERED: Z GUARD REMEDY PASTE 57 GM TUBE TOP PRN (17:30)
--- NOTE | 2020-05-30 18:10 | NUR ---
Report given to Goran ZHANG
--- NOTE | 2020-05-30 18:30 | NUR ---
Admitted patient in RM 314 via wheelchair, confused. Very difficult to redirect and at times uncooperative. Speech is garble and not making sense. On RA with no SOB or distress at this time. On tele NSR. Able to stand and getting out of bed but very unsteady. Kept redirecting to stay in bed. Safety precaution in place. Will continue to monitor
[2020-05-30 18:50] VITALS: BP 103/68
[2020-05-30 18:59] VITALS: BP 103/67
--- NOTE | 2020-05-30 19:10 | NUR ---
Pt in bed, awake. Pt is confused, speech is not making any sense. Difficult to redirect at times. Sitter is on the bedside. V/S stable on room air. No s/s of acute distress or pain at this time. Pt came here d/t syncopal episode. Skin is intact. Safety measures in place. Bed low and locked in position. Call light within reach. Will continue with the plan of care.
[2020-05-31] VITALS: BP 121/64
[2020-05-31 04:40] VITALS: BP 124/66
--- NOTE | 2020-05-31 06:34 | NUR ---
Pt slept intermittently through the night. V/S stable on room air. NSR on tele monitor. Fall precaution maintained. Sitter on the bedside. Safety measures in place. Call light within reach. Will endorse to oncoming nurse accordingly.
--- NOTE | 2020-05-31 07:15 | NUR ---
Received patient in bed, awake, confused. On Room air sat. 98%. No complain of Pain. Covid 19 rapid test was Negative, will be move to Room 306. Kept clean and comfortable. kept the bed in lowest position. Will continue to monitor.
[2020-05-31 08:09] LABS: BASOPHILS % (AUTO) 0.4 % (0.0-2.0); EOSINOPHILS % (AUTO) 0.4 % (0.0-7.0); HEMATOCRIT 31.4 % (31.2-41.9); HEMOGLOBIN 10.9 g/dL (10.9-14.3); LYMPHOCYTES # (AUTO) 2.9 K/uL (20.0-40.0); LYMPHOCYTES % (AUTO) 44.6 % (20.5-51.5); MEAN CORPUSCULAR HEMOGLOBIN 29.3 uug (24.7-32.8); MEAN CORPUSCULAR HGB CONC 35 g/dL (32.3-35.6); MEAN CORPUSCULAR VOLUME 84.6 fL (75.5-95.3); MONOCYTES # (AUTO) 0.9 K/uL (2.0-10.0); MONOCYTES % (AUTO) 14.1 % (0.0-11.0); NEUTROPHILS # (AUTO) 2.6 K/uL (1.8-8.9); NEUTROPHILS % (AUTO) 40.5 % (38.5-71.5); PLATELET COUNT (AUTO) 183 K/uL (179-408); RED BLOOD CELL COUNT(AUTO) 3.71 MIL/uL (3.63-4.92); WHITE BLOOD COUNT (AUTO) 6.5 K/uL (3.8-11.8)
[2020-05-31 08:18] LABS: BILIRUBIN,TOTAL 0.4 mg/dL (0.2-1.0); PHOSPHOROUS 3.4 mg/dL (2.5-4.9); POTASSIUM 3.2 mmol/L (3.5-5.1); TOTAL PROTEIN, SERUM 6.1 g/dL (6.4-8.2)
--- NOTE | 2020-05-31 09:23 | NUR ---
BP lying 134/74 FL 87, sitting 121/68 FL 87
--- NOTE | 2020-05-31 10:44 | NUR ---
collected Urine and sent to lab.
[2020-05-31] MEDS ORDERED: POTASSIUM CHLORIDE 20 MEQ TAB.PRT.SR PO ONE (10:45)
[2020-05-31 11:05] VITALS: BP 119/68
[2020-05-31] MEDS ORDERED: IV NS 1000 ML 1,000 ML IV PRN (11:15)
[2020-05-31 12:48] LABS: *BILIRUBIN,URIN NEGATIVE (NEGATIVE); *CLARITY,URINE CLOUDY (CLEAR); *COLOR,URINE YELLOW (YELLOW); *KETONES,URINE 2+ (NEGATIVE); *UROBILINOGEN,URINE 0.2 E.U./dl (NORMAL); LEUKOCYTE ESTERASE ,URINE 2+ (NEGATIVE); NITRITE, URINE POSITIVE (NEGATIVE); UGLUCOSE NEGATIVE (NEGATIVE)
[2020-05-31 12:49] LABS: *BLOOD, URINE TRACE INTACT (NEGATIVE)
[2020-05-31] MEDS ORDERED: NITROFURANTOIN/NITROFURAN MAC 100 MG CAPSULE PO SCH (13:00)
[2020-05-31] MEDS: CEphaleXIN 500 MG CAPSULE PO SCH ×2 (13:37→21:58)
[2020-05-31 14:05] LABS: BACTERIA,URINE MODERATE /HPF (NONE SEEN); RBC,URINE 0-3 /HPF (0-3); SQUAMOUS EPITHELIAL CELL,UR MODERATE /HPF (NONE SEEN); WBC,URINE TNTC /HPF (0-3)
[2020-05-31 16:18] VITALS: BP 98/66
--- NOTE | 2020-05-31 16:25 | NUR ---
patient started to be agitated trying to get up from bed, Dr. mata made aware with Order of Ativan 1mg IM x 1.
[2020-05-31] MEDS ORDERED: LORAZEPAM 2 MG/1 ML VIAL IM ONE (16:45)
--- NOTE | 2020-05-31 17:29 | NUR ---
Ativan 1mg IM was given and not effective. Patient remains agitated, Dr. mata made aware with new order of Zyprexa 5mg IM x one.
[2020-05-31] MEDS ORDERED: OLANZAPINE 10 MG VIAL IM ONE (17:30)
--- NOTE | 2020-05-31 18:25 | NUR ---
Patient in bed, still awake. On Room Air sat, 96%. No complain of Pain or discomfort noted. Patient noted with agitation, Ativan 1mg IM and Zyprexa 5mg IM given as ordered by Dr. mata. Patient on 1:1 for safety. kept clean and comfortable. Kept the bed in lowest position. Will endorse to Oncoming Nurse.
--- NOTE | 2020-05-31 19:20 | NUR ---
Pt in bed. Confused, speech is garbled and difficult to redirect at times. No s/s of acute distress or pain noted. V/S stable on room air. NSR on tele monitor. PIV on RAC 20 is intact with NS at 80cc. Safety measures in place. Call light within reach. Will continue with the plan of care.
[2020-05-31 20:00] VITALS: BP 107/88
[2020-05-31] MEDS: DIVALPROEX ER 500 MG TAB.SR.24H PO SCH (21:58)
[2020-05-31] MEDS: risperiDONE 0.5 MG TABLET PO SCH (21:58)
[2020-06-01 00:36] VITALS: BP 122/71
[2020-06-01 04:00] VITALS: BP 138/86
[2020-06-01 06:14] LABS: POTASSIUM 3.5 mmol/L (3.5-5.1)
--- NOTE | 2020-06-01 06:48 | NUR ---
Pt stable throughout the shift. Comfort care and needs attended. Safety measures in place. Call light within reach. Will endorse to oncoming nurse
[2020-06-01 08:00] VITALS: BP 116/67
[2020-06-01] MEDS: CEphaleXIN 500 MG CAPSULE PO SCH ×2 (09:03→17:55)
[2020-06-01] MEDS: risperiDONE 0.5 MG TABLET PO SCH ×2 (09:03→20:02)
[2020-06-01] MEDS: IV NS 1000 ML 1,000 ML IV PRN ×2 (11:00→23:39)
--- NOTE | 2020-06-01 11:00 | NUR ---
SLEEPING WELL MOST OF AM. AROUSES EASILY. EATING WELL, BUT STILL HALLUCINATING WHEN AWAKE.
[2020-06-01 11:48] VITALS: BP 118/70
[2020-06-01] MEDS: HYDROCODONE/APAP 5-325MG TABLET PO PRN ×2 (13:44→21:31)
--- NOTE | 2020-06-01 14:30 | NUR ---
INC. LARGE AMOUNT OF URINE WITH SMALL STOOL. BED BATH & COMPLETE LINEN CHANGE.
[2020-06-01 15:38] VITALS: BP 131/65
--- NOTE | 2020-06-01 18:30 | NUR ---
AWAKE AND CONFUSED. TOLERATED DINNER WELL. NO C/O DISCOMFORT.
--- NOTE | 2020-06-01 19:30 | NUR ---
RECEIVED PT AWAKE , ALERT AND ORIENTEDX2. PT IN NO ACUTE DISTRESS. IV INTACT. SAFETY AND COMFORT PROVIDED. SITTER AT BEDSIDE FOR SAFETY. IV INTACT. WILL CONTINUE TO MONITOR.
[2020-06-01 20:00] VITALS: BP_SYST 114; BP_SYST 121; BP_SYST 94; BP_DIAS 49; BP_DIAS 60; BP_DIAS 70
[2020-06-01] MEDS: DIVALPROEX ER 500 MG TAB.SR.24H PO SCH (20:02)
[2020-06-02] VITALS: BP 120/64
[2020-06-02 04:30] VITALS: BP 108/60
--- NOTE | 2020-06-02 06:45 | NUR ---
PT SLEPT COMFORTABLY. PT IN NO ACUTE DISTRESS. PRESCRIBED MEDICATION GIVEN AND PT TOLERATED IT WELL. SITTER AT BEDSIDE FOR SAFETY. NORCO GIVEN AT 2131 H. AFTER AN HOUR PT STATED SHE FELT BETTER. PT HAD EPISODES OF FORGETFULNESS. FLIGHT OF IDEAS. PT NEEDS REORIENTATION. PT CAN FOLLOW COMMANDS. SAFETY AND COMFORT PROVIDED. WILL ENDORSE TO INCOMING NURSE FOR CONTINUITY OF CARE.
[2020-06-02 08:00] VITALS: BP 100/67
[2020-06-02] MEDS: risperiDONE 0.5 MG TABLET PO SCH ×2 (08:32→16:14)
[2020-06-02] MEDS: CEphaleXIN 500 MG CAPSULE PO SCH ×2 (08:32→16:14)
--- NOTE | 2020-06-02 08:45 | NUR ---
PT [facility] [employer] [employer] GOING TO RADIOLOGY DEPARTMENT. PT STABLE AND IN NO ACUTE DISTRESS.
--- NOTE | 2020-06-02 08:58 | NUR ---
PT GOT BACK FROM RADIOLOGY DEPRATMENT. PT STABLE AND IN NO ACUTE DISTRESS. WILL CONTINUE TO MONITOR.
[2020-06-02] MEDS ORDERED: risperiDONE 0.5 MG TABLET PO SCH (09:15)
--- NOTE | 2020-06-02 09:30 | NUR ---
DR. CORBETT ORDERED DISCONTINUED IV FLUID.
[2020-06-02 11:07] VITALS: BP 112/61
[2020-06-02 15:16] VITALS: BP 113/62
--- NOTE | 2020-06-02 18:25 | NUR ---
PT SLEPT COMFORTABLY. PT IN NO ACUTE DISTRESS. PRESCRIBED MEDICATION GIVEN AND PT TOLERATED IT WELL. SITTER AT BEDSIDE FOR SAFETY. PT CAN FOLLOW COMMANDS. SAFETY AND COMFORT PROVIDED. WILL ENDORSE TO INCOMING NURSE FOR CONTINUITY OF CARE.
[2020-06-02 20:00] VITALS: BP 124/66
[2020-06-02] MEDS: DIVALPROEX ER 500 MG TAB.SR.24H PO SCH ×2 (20:49→20:54)
[2020-06-02] MEDS: risperiDONE 1 MG TABLET PO SCH ×2 (20:50→20:54)
[2020-06-03] VITALS: BP 117/67
[2020-06-03 05:00] VITALS: BP 127/61
--- NOTE | 2020-06-03 07:22 | NUR ---
Handoff with [facility]. Everton Ridley RN
[2020-06-03] MEDS: CEphaleXIN 500 MG CAPSULE PO SCH ×2 (08:24→17:29)
[2020-06-03] MEDS: risperiDONE 0.5 MG TABLET PO SCH ×2 (08:24→17:29)
[2020-06-03] MEDS: ENSURE WITH FIBER 237 ML LIQUID (CHOCOLATE) PO SCH ×3 (10:46→17:28)
[2020-06-03] MEDS ORDERED: RISP0.5T5 PO (11:41)
[2020-06-03] MEDS ORDERED: RISP1TAB7 PO (11:41)
[2020-06-03] MEDS ORDERED: CEPH500C2 PO (11:41)
[2020-06-03] MEDS ORDERED: MAGN400O6 PO (11:41)
[2020-06-03] MEDS ORDERED: HYDR-3972 PO (11:41)
[2020-06-03] MEDS ORDERED: ACET325T53 PO (11:41)
[2020-06-03] MEDS ORDERED: DIVA500T4 PO (11:41)
[2020-06-03] MEDS ORDERED: Lactose-Free Food/Fiber PO (11:41)
[2020-06-03] MEDS ORDERED: MENT71OI TOP (11:41)
[2020-06-03] MEDS ORDERED: ONDA4VIA23 IV (11:41)
[2020-06-03 12:00] VITALS: BP 106/58
[2020-06-03 16:00] VITALS: BP 127/65
--- NOTE | 2020-06-03 18:14 | NUR ---
Patient awake, alert and oriented to name and place. Discontinued IV. No bleeding noted at site. Patient voided X1 prior to discharge. Patient is discharged from Med Surg and transferring to Deep Psych. Discharge instructions given to patient. Patient is forgetful at times. Vaccines will be followed up with primary physician.
== END 2020-06-03 18:22 | DRG 73 ==
LOC: ER 16:03 → TELE3 18:10 → MEDSURG3 06-03 07:55
PROVIDERS: ADMIT Nurse Practitioner Acute Care; ATTEND Registered Nurse
DX: G90.8 Other disorders of autonomic nervous system (principal); G92 Toxic encephalopathy; E44.0 Moderate protein-calorie malnutrition; N39.0 Urinary tract infection, site not specified; F31.2 Bipolar disorder, current episode manic severe with psychotic features; E87.6 Hypokalemia; Z66 Do not resuscitate; E78.5 Hyperlipidemia, unspecified; F03.90 Unspecified dementia, unspecified severity, without behavioral disturbance, psychotic disturbance, mood disturbance, and anxiety; R53.1 Weakness; E88.09 Other disorders of plasma-protein metabolism, not elsewhere classified; Z68.25 Body mass index [BMI] 25.0-25.9, adult; B96.20 Unspecified Escherichia coli [E. coli] as the cause of diseases classified elsewhere
CPT/HCPCS: 36415; 70030-TC; 70450; 71045; 83605; 83735; 84100; 85025; 87040; 87086; 93307; A4663; G0378; J2060; J2358

== ENCOUNTER 2020-06-03 19:07 | Inpatient (IN) | payer MEDICARE, BC ==
[~2020-06-03] VITALS: Ht 157.5 cm; Wt 66.2 kg
[~2020-06-03 19:07] MED LIST changes: +ACET325T53 PO; +CEPH500C2 PO; +DIVA500T4 PO; +HYDR-3972 PO; +Lactose-Free Food/Fiber PO; +MAGN400O6 PO; +MENT71OI TOP; +ONDA4VIA23 IV; +RISP0.5T5 PO; +RISP1TAB7 PO
[2020-06-03 19:31] VITALS: BP 132/78
[2020-06-03] MEDS ORDERED: MAGNESIUM HYDROXIDE 30 ML LIQUID UDC PO PRN (21:00)
[2020-06-03] MEDS ORDERED: LORAZEPAM 0.5 MG TABLET PO PRN (21:00)
[2020-06-03] MEDS ORDERED: MAG HYDROX/AL HYDROX/SIMETH 30 ML LIQUID UDC PO PRN (21:00)
[2020-06-03] MEDS: ZOLPIDEM 5 MG TABLET PO PRN (21:35)
[2020-06-03] MEDS: ACETAMINOPHEN 325 MG TABLET PO PRN (21:35)
[2020-06-04 04:00] VITALS: BP 122/71
[2020-06-04 07:30] VITALS: BP 113/61
[2020-06-04 07:44] LABS: BILIRUBIN,TOTAL 0.3 mg/dL (0.2-1.0); CREATININE 0.8 mg/dL (0.6-1.3); POTASSIUM 4.3 mmol/L (3.5-5.1); TOTAL PROTEIN, SERUM 5.4 g/dL (6.4-8.2)
[2020-06-04] MEDS: risperiDONE 0.5 MG TABLET PO SCH ×2 (10:59→17:15)
[2020-06-04] MEDS: ACETAMINOPHEN 325 MG TABLET PO PRN (12:42)
[2020-06-04] MEDS ORDERED: BISACODYL 10 MG SUPP.RECT RC PRN (14:15)
[2020-06-04] MEDS: LORAZEPAM 1 MG TABLET PO PRN (15:33)
[2020-06-04 16:15] VITALS: BP 121/61
[2020-06-04] MEDS: DOCUSATE SODIUM 100 MG CAPSULE PO SCH (20:21)
[2020-06-04] MEDS: DIVALPROEX ER 500 MG TAB.SR.24H PO SCH (20:22)
[2020-06-04 20:31] VITALS: BP 113/73
[2020-06-04] MEDS: risperiDONE 1 MG TABLET PO SCH (21:35)
[2020-06-05 06:36] VITALS: BP 90/60
[2020-06-05 07:15] VITALS: BP 108/50
[2020-06-05] MEDS: DOCUSATE SODIUM 100 MG CAPSULE PO SCH ×2 (08:37→20:12)
[2020-06-05] MEDS: risperiDONE 0.5 MG TABLET PO SCH ×2 (08:37→17:23)
[2020-06-05] MEDS: ACETAMINOPHEN 325 MG TABLET PO PRN (11:00)
[2020-06-05 14:48] VITALS: BP 104/55
[2020-06-05] MEDS: DIVALPROEX ER 500 MG TAB.SR.24H PO SCH (20:12)
[2020-06-05] MEDS: risperiDONE 1 MG TABLET PO SCH (20:12)
[2020-06-06] MEDS: ZOLPIDEM 5 MG TABLET PO PRN (00:02)
[2020-06-06 07:37] VITALS: BP 114/69
[2020-06-06] MEDS: risperiDONE 0.5 MG TABLET PO SCH (09:24)
[2020-06-06] MEDS: DOCUSATE SODIUM 100 MG CAPSULE PO SCH (09:24)
[2020-06-06] MEDS: LORAZEPAM 1 MG TABLET PO PRN (11:29)
[2020-06-06 14:53] VITALS: BP 106/78
[2020-06-06] MEDS ORDERED: DOCU-141 PO (16:35)
[2020-06-06] MEDS ORDERED: LORA-259 PO (16:38)
[2020-06-06] MEDS ORDERED: BISA10SU61 RC (16:38)
[2020-06-06] MEDS ORDERED: ZOLP5TAB2 PO (16:39)
== END 2020-06-06 15:50 | DRG 885 ==
LOC: MEDSURG3 19:07 → GPSOV3 20:29
PROVIDERS: ADMIT Psychiatry & Neurology Psychiatry; ATTEND Registered Nurse
DX: F31.64 Bipolar disorder, current episode mixed, severe, with psychotic features (principal); E44.0 Moderate protein-calorie malnutrition; F03.91 Unspecified dementia, unspecified severity, with behavioral disturbance; G93.40 Encephalopathy, unspecified; F03.90 Unspecified dementia, unspecified severity, without behavioral disturbance, psychotic disturbance, mood disturbance, and anxiety; E78.5 Hyperlipidemia, unspecified; R53.1 Weakness; E88.09 Other disorders of plasma-protein metabolism, not elsewhere classified; Z68.26 Body mass index [BMI] 26.0-26.9, adult; Z87.440 Personal history of urinary (tract) infections
CPT/HCPCS: 36415